=== PATIENT | female | born 1945 | race Caucasian/White ===

== ENCOUNTER 2017-03-27 12:54 | Outpatient (CLI) | payer MEDICARE, OTHER | END 2017-03-27 12:55 | disposition home or self-care (01) | LOC: NS 12:54 | PROVIDERS: ATTEND Internal Medicine | DX: Z71.3 Dietary counseling and surveillance (principal); E11.9 Type 2 diabetes mellitus without complications; Z68.33 Body mass index [BMI] 33.0-33.9, adult; Z79.84 Long term (current) use of oral hypoglycemic drugs | CPT/HCPCS: 97802 ==

== ENCOUNTER 2017-04-11 11:09 | Outpatient (CLI) | payer MEDICARE, OTHER | END 2017-04-11 11:10 | disposition home or self-care (01) | LOC: NS 11:09 | PROVIDERS: ATTEND Internal Medicine | DX: Z71.3 Dietary counseling and surveillance (principal); E11.9 Type 2 diabetes mellitus without complications; Z68.31 Body mass index [BMI] 31.0-31.9, adult | CPT/HCPCS: 97803 ==